=== PATIENT | male | born 1960 | race Caucasian/White ===

== ENCOUNTER 2016-12-31 20:04 | Inpatient (IN) | payer BC, OTHER ==
--- NOTE | 2016-12-31 21:20 | NUR ---
Intake Assessment Px will be admitted for alcohol dependence. Px is alert, oriented x4. Px is ambulatory with steady gait. Speech is clear. Px is anxious but cooperative. Px denies any PMHx. VS is as follows, BP= 161/99, TN= 131, T= 97.9, RR= 19, O2 sat= 94%. Explained unit protocol, and verbalized understanding.
--- NOTE | 2016-12-31 21:34 | NUR ---
Admission Note Admitted a 56 y/o male, at 2134H 12/31/2016 for withdrawal symptoms of alcohol. Body search done and skin checked, no contraband found, skin laceration on back of the head noted no active bleeding, picture taken. Px is standing at 5'10" weighs 208 lbs. Px is alert, oriented , and cooperative. Px follows a regular diet, has no known allergies and wishes to be in full code. Px appears to be anxious, with complaints of nausea. Abdomen is soft and not distended. Bowel sounds are active. Bilateral hand tremors and restlessness noted. VS is as follows, BP= 140/90, ME= 120, RR=18, T=98.7, O2sat= 95%. Denies any PmHx but took Sertralin for depression from his psychiatrist. Px reported suicide thoughts but not attempted. Px able to provide urine for drug test. Current CIWA is 16. Substance used: ETOH- Px has been drinking since he was 13 y/o. He was drinking 3-4 liters of wine a day for the past 2 weeks. Last intake was this morning 12/31/2016 Treatment Hx: [facility] for 6 days this December 2016 Px was brought to ER [facility] due to fall, wound lacerations noted on the back of the head, picture taken. Px reports longest sobriety was 4.5 months this 2016. Px reports symptoms of anxiety, restlessness, and sweats when he does not drink. Px denies use of any other drugs. Px refused to get pneumonia vaccine. Denies occurrence of seizures. Px put on fall risk, low bed, call light within reach. Seen and examined by Dr. Clark with orders and carried out. Alcohol level is at 0.11 Will continue to monitor the px.
--- NOTE | 2016-12-31 21:56 | NUR ---
ATIVAN 2mg x1 Patient presented with complaints of nausea with no episode of vomiting, fine tremors & restlessness. Patient was drenching in sweats & appears really anxious and with slight agitation noted. CIWA [address] this time[address] Dr. Clark saw patient with orders to given Ativan 2mg PO. Orders noted and carried out. Will reassess patient in 1 hour.
[2016-12-31] MEDS ORDERED: LORAZEPAM 1 MG TABLET PO ONE (22:00)
[2016-12-31] MEDS ORDERED: LORAZEPAM 1 MG TABLET ONE ×2 (22:07→23:59)
[2016-12-31] MEDS ORDERED: diphenhydrAMINE 50 MG CAPSULE PO PRN (22:15)
[2016-12-31] MEDS ORDERED: MIRALAX 17 GM POWD.PACK PO PRN (22:15)
[2016-12-31] MEDS ORDERED: ONDANSETRON 4 MG/2 ML VIAL IM PRN (22:15)
[2016-12-31] MEDS ORDERED: MAG HYDROX/AL HYDROX/SIMETH 30 ML LIQUID UDC PO PRN (22:15)
[2016-12-31] MEDS ORDERED: LOPERAMIDE HCL 2 MG CAPSULE PO PRN ×2 (22:15)
[2016-12-31] MEDS ORDERED: ACETAMINOPHEN 325 MG TABLET PO PRN (22:15)
[2016-12-31] MEDS ORDERED: IBUPROFEN 400 MG TABLET PO PRN (22:15)
[2016-12-31] MEDS ORDERED: ONDANSETRON ODT 4 MG TAB.RAPDIS SL PRN (22:15)
[2016-12-31] MEDS ORDERED: NEOMY/BACITRAC/POLYMI OINT 28.35 GM TUBE TOP SCH (22:15)
[2016-12-31] MEDS ORDERED: THIAMINE HCL 200 MG/2 ML VIAL IM ONE (22:15)
[2016-12-31] MEDS ORDERED: CLONIDINE HCL 0.1 MG TABLET PO PRN (22:15)
[2016-12-31] MEDS ORDERED: LORAZEPAM 2 MG/1 ML VIAL IM PRN (22:15)
[2016-12-31] MEDS ORDERED: LORAZEPAM 1 MG TABLET PO PRN ×2 (22:15)
[2016-12-31 22:22] LABS: *AMPHETAMINE, URINE NEGATIVE (NEGATIVE); *BARBITURATE, URINE POSITIVE (NEGATIVE); *CANNABINOID, URINE POSITIVE (NEGATIVE); *COCCAINE, URINE NEGATIVE (NEGATIVE); *OPIATE, URINE NEGATIVE (NEGATIVE); *PHENCYCLIDINE SCREEN,URINE NEGATIVE (NEGATIVE)
[2016-12-31] MEDS ORDERED: THIAMINE HCL 200 MG/2 ML VIAL ONE (22:30)
--- NOTE | 2016-12-31 22:44 | NUR ---
PRN Zofran Patient complains of nausea with no episode of vomiting. PRN Zofran administered as ordered. Will reassess in 1 hour. Will continue to monitor.
[2016-12-31] MEDS ORDERED: CLONIDINE HCL 0.1 MG TABLET PO ONE (22:45)
[2016-12-31] MEDS ORDERED: ONDANSETRON ODT 4 MG TAB.RAPDIS ONE (22:53)
[2016-12-31 23:16] LABS: BASOPHILS % (AUTO) 0.5 % (0.0-2.0); EOSINOPHILS % (AUTO) 0.2 % (0.0-7.0); HEMATOCRIT 43.4 % (40-50); HEMOGLOBIN 14.5 G/DL (14.0-18.0); LYMPHOCYTES # (AUTO) 0.5 K/UL (0.8-4.8); LYMPHOCYTES % (AUTO) 5.8 % (20.5-51.5); MEAN CORPUSCULAR HEMOGLOBIN 30.7 UUG (27.0-31.0); MEAN CORPUSCULAR HGB CONC 33 g/dL (32.0-37.0); MEAN CORPUSCULAR VOLUME 92.2 FL (82.0-92.0); MONOCYTES # (AUTO) 0.6 K/UL (0.1-1.30); MONOCYTES % (AUTO) 6.9 % (0.0-11.0); NEUTROPHILS # (AUTO) 8.3 K/UL (1.8-8.9); NEUTROPHILS % (AUTO) 86.6 % (38.5-71.5); PLATELET COUNT (AUTO) 214 K/UL (150-450); RED BLOOD CELL COUNT(AUTO) 4.71 MIL/UL (4.7-6.1); WHITE BLOOD COUNT (AUTO) 9.4 K/UL (4.0-11.2)
[2016-12-31 23:36] LABS: BILIRUBIN,TOTAL 0.6 mg/dL (0.2-1.0); CREATININE 0.9 mg/dL (0.6-1.3); MAGNESIUM 1.8 mg/dL (1.8-2.4); POTASSIUM 3.8 mmol/L (3.5-5.1); TOTAL PROTEIN, SERUM 7.7 g/dL (6.4-8.2)
--- NOTE | 2016-12-31 23:53 | NUR ---
PRN Administration Patient still complaining of anxiety, sweating & mild headache. Patient appears restless and anxious. Patient still noted with bilateral hand tremors. No hallucinations noted. CIWA 13 noted at this time. PRN Ativan 1mg, Motrin & a one time dose of Clonidine administered as ordered. Will monitor for effectiveness of medication.
[2016-12-31] MEDS ORDERED: IBUPROFEN 400 MG TABLET ONE (23:58)
[2016-12-31] MEDS ORDERED: CLONIDINE HCL 0.1 MG TABLET ONE (23:59)
[2017-01-01] VITALS: BP 153/97
[2017-01-01] MEDS ORDERED: diphenhydrAMINE 50 MG CAPSULE ONE (00:13)
[2017-01-01] MEDS ORDERED: TRAZODONE 50 MG TABLET PO ONE (01:00)
--- NOTE | 2017-01-01 01:08 | NUR ---
Patient complaining that he can't sleep. PRN Benadryl given at 0003 was not effective. Trazodone 50mg one time given as ordered. Will continue to monitor patient.
[2017-01-01] MEDS ORDERED: TRAZODONE 50 MG TABLET ONE (01:13)
--- NOTE | 2017-01-01 01:30 | NUR ---
MD Communication: Pt c/o angina, rating pain 5/10 and reports that pain does not radiate. HR 117, BP 118/80, SpO2 92-95% on RA. Dr Clark contacted and order received for stat ECG and Troponin. Also one-time orders for Ativan 2mg PO and metoprolol 50mg PO. ECG resulted at 01:37 abnormal; results relayed to Dr Clark 01:41 with order to given Aspirin 325mg PO x1 and transfer to ED for admission to 2nd floor for telemetry.
[2017-01-01] MEDS ORDERED: METOPROLOL TARTRATE 50 MG TABLET PO ONE (01:45)
[2017-01-01 01:51] VITALS: BP 118/80
[2017-01-01] MEDS ORDERED: METOPROLOL TARTRATE 50 MG TABLET ONE (01:56)
[2017-01-01] MEDS ORDERED: LORAZEPAM 1 MG TABLET ONE (01:57)
[2017-01-01] MEDS ORDERED: ASPIRIN 325 MG TABLET PO ONE (02:00)
[2017-01-01] MEDS ORDERED: LORAZEPAM 1 MG TABLET PO ONE (02:00)
[2017-01-01] MEDS ORDERED: ASPIRIN 325 MG TABLET ONE (02:02)
--- NOTE | 2017-01-01 02:05 | NUR ---
Transferred pt to ED via wheelchair with [facility], Charge Nurse and Primary Nurse. Report given to ER Nurse.
[2017-01-01] MEDS ORDERED: MULTIVITAMINS,THERAPEUTIC TABLET PO SCH (09:00)
[2017-01-01] MEDS ORDERED: TUBERCULIN,PURIF.PROT.DERIV. 5 TU/0.1 ML TEST ID ONE (09:00)
[2017-01-01] MEDS ORDERED: GABAPENTIN 300 MG CAPSULE PO SCH (09:00)
[2017-01-01] MEDS ORDERED: LORAZEPAM 1 MG TABLET PO SCH (09:00)
[2017-01-01] MEDS ORDERED: THIAMINE HCL 100 MG TABLET PO SCH (09:00)
[2017-01-01] MEDS ORDERED: FOLIC ACID 1 MG TABLET PO SCH (09:00)
[2017-01-02 06:08] LABS: HEPATITIS B SURFACE AG Negative (Negative)
[2017-01-02] MEDS ORDERED: LORAZEPAM 1 MG TABLET PO SCH (09:00)
[2017-01-04] MEDS ORDERED: LORAZEPAM 1 MG TABLET PO SCH (09:00)
[2017-01-05] MEDS ORDERED: LORAZEPAM 1 MG TABLET PO SCH (09:00)
== END 2017-01-01 02:05 | disposition short-term general hospital, planned readmission (82) | DRG 897 ==
LOC: SRC 20:58
PROVIDERS: ADMIT Internal Medicine; ATTEND Internal Medicine
PROC: HZ2ZZZZ Detoxification Services for Substance Abuse Treatment (ICD-10-PCS; principal; 2016-12-31)
DX: F10.232 Alcohol dependence with withdrawal with perceptual disturbance (principal); F32.9 Major depressive disorder, single episode, unspecified; W19.XXXD Unspecified fall, subsequent encounter; E78.5 Hyperlipidemia, unspecified; S01.01XD Laceration without foreign body of scalp, subsequent encounter; F41.9 Anxiety disorder, unspecified; R07.9 Chest pain, unspecified
CPT/HCPCS: 36415; 70030-TC; 80307; 80345; 80349; 83690; 83735; 85025; 86592; 86705; 86803; 87340; 87806; 93005; G0480; J3411; Q0162; Q0163

== ENCOUNTER 2017-01-01 02:01 | Inpatient (IN) | payer BC, OTHER ==
[~2017-01-01] VITALS: Ht 177.8 cm; Wt 99.8 kg
[2017-01-01] MEDS ORDERED: IV D5/ 0.9% NACL 1,000 ML IV ONE (02:12)
--- NOTE | 2017-01-01 02:14 | NUR ---
Pt brought to room from [facility] for complaints of chest pain. Pt NSR to ST on monitor. Pt denies chest pain at this time. Resp even and unlabored. Pt seen by Dr. English, awaiting further orders.
[2017-01-01] MEDS ORDERED: NITROGLYCERIN 0.4 MG/TAB BOTTLE SL ONE (02:15)
[2017-01-01] MEDS ORDERED: LORAZEPAM 2 MG/1 ML VIAL IV ONE (02:15)
[2017-01-01] MEDS ORDERED: NITROGLYCERIN OINT 1 GM PACKET TP ONE (02:15)
[2017-01-01] MEDS ORDERED: ASPIRIN 81 MG TAB.CHEW PO ONE (02:15)
[2017-01-01 02:42] LABS: BASOPHILS # (AUTO) 0.1 K/uL (0.0-8.0); BASOPHILS % (AUTO) 1.7 % (0.0-2.0); EOSINOPHILS % (AUTO) 0.2 % (0.0-7.0); HEMATOCRIT 40.6 % (40-50); HEMOGLOBIN 13.8 G/DL (14.0-18.0); LYMPHOCYTES # (AUTO) 0.8 K/UL (0.8-4.8); LYMPHOCYTES % (AUTO) 10.6 % (20.5-51.5); MEAN CORPUSCULAR HGB CONC 34 g/dL (32.0-37.0); MEAN CORPUSCULAR VOLUME 91.2 FL (82.0-92.0); MONOCYTES # (AUTO) 0.5 K/UL (0.1-1.30); MONOCYTES % (AUTO) 7.2 % (0.0-11.0); NEUTROPHILS # (AUTO) 6.1 K/UL (1.8-8.9); NEUTROPHILS % (AUTO) 80.3 % (38.5-71.5); PLATELET COUNT (AUTO) 196 K/UL (150-450); RED BLOOD CELL COUNT(AUTO) 4.46 MIL/UL (4.7-6.1); WHITE BLOOD COUNT (AUTO) 7.5 K/UL (4.0-11.2)
[2017-01-01 02:56] LABS: CREATININE 0.7 mg/dL (0.6-1.3)
[2017-01-01] MEDS ORDERED: LACTULOSE 20 G/30 ML LIQUID UDC PO ONE (03:15)
--- NOTE | 2017-01-01 03:20 | NUR ---
Rectal exam done by Dr. English with KALI Rae assisting. Upon rolling the pt for rectal exam, laceration to the back of head noted approx 2-3 cm. Unclear if pt went to ER s/p fall like he says.
[2017-01-01] MEDS ORDERED: CEFAZOLIN 1 G in IV DEXTROSE 5% 50 ML IV ONE (03:30)
[2017-01-01] MEDS ORDERED: TDAP DIPH,PERTUSS,TET VAC/PF 0.5 ML DISP.SYRIN IM ONE ×2 (03:45→04:19)
--- NOTE | 2017-01-01 03:46 | NUR ---
laceration to back of head cleansed with betadine and dry bulky drsg applied per Dr. English. Pt to CT via nita
--- NOTE | 2017-01-01 04:16 | NUR ---
Pt returned from CT via gurney. Pt no complaints at this time. ABT infusion started, will monitor for any adverse reactions.
[2017-01-01] MEDS ORDERED: CEFAZOLIN 1 G VIAL ONE (04:18)
[2017-01-01] MEDS ORDERED: LACTULOSE 20 G/30 ML LIQUID UDC ONE (04:19)
--- NOTE | 2017-01-01 05:55 | NUR ---
Pt to nuc. med via nita.
--- NOTE | 2017-01-01 07:00 | NUR ---
Pt returned from [facility]. med via gurney. Pt no complaints at this time. Pt NSR on monitor. Resp even and unlabored. Pt repositioned for comfort and given applesauce until his breakfast tray arrives.
--- NOTE | 2017-01-01 07:16 | NUR ---
Report given to KALI Carballo. I relinquish care of pt at this time. Pt awaiting results of VQ scan, re-evaluation and disposition.
--- NOTE | 2017-01-01 07:22 | NUR ---
1st contact with patient, Ox4, pending VQ scan results at this time. Patient is resting comfortably in bed with eyes closed. PATIENT IS PAIN FREE AT THIS TIME.
--- NOTE | 2017-01-01 08:06 | NUR ---
Telemetry nurse Tonia accepted nursing hands off report.
--- NOTE | 2017-01-01 08:23 | NUR ---
Patient is eating breakfast tray with good appetite, pending [facility] acceptance. Medically cleared by ER doctor Erich after talking to the [facility] hospitalist Dr Doyle Benton.
--- NOTE | 2017-01-01 08:38 | NUR ---
IV line may be used in [facility] or will be discontinued per Ethan- [facility] script worker.
--- NOTE | 2017-01-01 08:43 | NUR ---
Patient is for discharge back to [facility]. Ethan from [facility] came here (0839am) and picked up the patient. Patient discharged in stable conditon. Written and verbal after care instructions [facility] Patient verbalizes understanding of instructions and left ER with steady gait.
--- NOTE | 2017-01-01 09:11 | NUR ---
Received report from ER nurse Sadie, in regards to pt. 56 yo male transferred to ED around 0230 AM for c/o chest pain. Per reports CT of head, CXR, test to r/o PE, DVT all resulted negative. Troponin levels drawn x2, and negative. Pt has scalp laceration from fall prior to hospital admission. Pt ammonia level reports to be elevated at 50. Pt has saline lock #20 gauge. Per report, diagnosis from Dr. Jung is Delirium tremens and pt is stable to be transferred to our unit. Alert and Oriented x4 but slow to respond. Pt to be admitted to [facility] for detox at this time.
--- NOTE | 2017-01-01 09:15 | NUR ---
PRE ADMISSION Pre admission for 56 year old male, patient discharged from ER at [facility], to be admitted to [facility] detox. Patient was at ER at [facility] for c/o chest pain, patient was medically cleared. Patient to be admitted to [facility] detox. Patient noted alert and oriented x4, able to make needs known. Patient vital signs: 124/73 heart rate: 87, o2 sat: 94% room air, r: 16. Denies pain/discomfort. patient reports he's is here to detox off of alcohol. Patient was provided with education regarding unit policies with good verbal understanding. Patient denies any history of seizures. patient denies any past medical history, reports past psychiatric history of anxiety, diagnosed 4 years ago. patient denies taking any home medications. Patient reports allergies to shellfish.
--- NOTE | 2017-01-01 09:30 | NUR ---
ADMISSION Patient arrived to [facility] recovery unit at 0930, noted with steady gait. patient body search completed by male intake staff, no contraband found, patients body assessment completed, noted with laceration on top of head, approximately 3cmx [id number], appears to have scab over wound bed, fatmata wound pink in color. Per patient S/P fall incident on Wednesday. Denies any headaches or dizziness, pupils are equal and reactive to light, 3mm. Patients is 5 feet 10 inches and weighs 220 lbs. Picture was taken of laceration on head, and placed in chart. Patient was oriented to room and to unit, education regarding call light use was provided with good verbal understanding. Patient reports he is here to detox off of alcohol. As per patient for the past two weeks has been consuming 3-4 bottles of red wine daily. Per patient he last consumed a drink on 12/31/2016 in the morning, consumed 3 bottles of red wine. Patient reports he began drinking alcohol at the age of [age] years old, but has been consuming on/off on a daily basis in adulthood. Per patient he has been to multiple treatment centers, un able to recall the name of the, but reports this year he completed a 30 day program in May 2016 at [facility]. Reports this year he also attended [facility] twice. Patient reports two weeks ago he was at [facility], upon completion patient relapsed. Patient denies any history of seizures. Reports his primary care physician is Dr. Hogue in [place] at [facility]. Reports he was diagnosed with anxiety 4 years ago. Patient is poor historian, and noted slow to respond, patient is alert and oriented x4, noted disheveled and odorous. Patients respirations are even and unlabored, lungs are clear upon auscultation. Abdomen is soft and non distended, bowel sounds heard in all quadrants. Patient presented with mild nausea, fine tremors, barely sweating, moderate anxiety, and mild agitation with ciwa score of: 9. Dr. Clark aware of new admission. patients Safety measures are in place. call light kept with in reach, patient with admitting VTE score of: 2. DVT pumps placed in room. All needs met and rendered, will continue to monitor.
[2017-01-01] MEDS ORDERED: THIAMINE HCL 200 MG/2 ML VIAL IM ONE (10:00)
[2017-01-01] MEDS ORDERED: LORAZEPAM 2 MG/1 ML VIAL IM PRN (10:00)
[2017-01-01] MEDS ORDERED: LOPERAMIDE HCL 2 MG CAPSULE PO PRN ×2 (10:00)
[2017-01-01] MEDS ORDERED: ACETAMINOPHEN 325 MG TABLET PO PRN (10:00)
[2017-01-01] MEDS ORDERED: MAG HYDROX/AL HYDROX/SIMETH 30 ML LIQUID UDC PO PRN (10:00)
[2017-01-01] MEDS ORDERED: MIRALAX 17 GM POWD.PACK PO PRN (10:00)
[2017-01-01] MEDS ORDERED: ONDANSETRON 4 MG/2 ML VIAL IM PRN (10:00)
[2017-01-01] MEDS ORDERED: LORAZEPAM 1 MG TABLET PO PRN ×2 (10:00)
[2017-01-01 10:04] VITALS: BP 124/73
[2017-01-01] MEDS: LORAZEPAM 1 MG TABLET PO SCH ×4 (10:36→20:48)
--- NOTE | 2017-01-01 10:53 | NUR ---
SALINE LOCK D/C Saline lock was removed, no redness or infiltration noted, covered site with gauze and tape.
[2017-01-01 12:30] VITALS: BP 124/79
--- NOTE | 2017-01-01 13:56 | NUR ---
WOUND CARE CONSULT: PT PRESENTS WITH SCALP LACERATION WITH SCANT AMOUNT OF PINK DRAINAGE. CONCUR WITH CURRENT ORDER FOR TRIPLE AB OINTMENT. DISCUSSED WITH NURSING STAFF. WILL SEE PRN. TAY IN AGREEMENT WITH PLAN OF CARE. Addendum: 01/01/17 at 1357 by MICHELLE RODRIGUEZ RN Amended: Links added.
[2017-01-01 17:00] VITALS: BP 135/94
[2017-01-01] MEDS: NEOMY/BACITRAC/POLYMI OINT 28.35 GM TUBE TOP SCH (17:26)
--- NOTE | 2017-01-01 19:05 | NUR ---
END OF SHIFT Patient alert and oriented x4, vital signs stable during shift. Patient compliant with therapeutic plan of care. Patient with admitting Dx: ETOH dependence. Patient currently with ongoing 5 day Ativan taper, and is under close observation. 1300 assessment patient presented with: mild nausea, fine tremors, barely sweating, moderate anxiety, and mild agitation with ciwa score of: 9. 1700 assessment patient presented with: fine tremors, barely sweating, anxiety, and mild agitation with ciwa core of: 8. Detox medication effective at reducing withdrawal symptoms. Ativan taper, well tolerate,d no ASE noted. During shift patient was seen by Wound care nurse, with new treatment as ordered, area kept clean and dry at all times. Dry dressing intact. Patient denies any SI/HI. Encouraged to attend group therapies/sessions to learn new coping skills to prevent relapse, patient preferred to stay in room, despite much encouragement, per patient he is very tired and would like to rest. Encouraged adequate PO fluid intake as tolerated. Safety measures in place. Call light kept with in reach. All needs met and rendered. Patient endorsed to welder 2nd shift nurse, all pertinent information discussed.
[2017-01-01 20:00] VITALS: BP 139/83
--- NOTE | 2017-01-01 20:00 | NUR ---
Start of Shift Pt is a 56 year old male admitted for ETOH dependence, placed on 5 day Ativan taper. Pt reports consumption o f 3-4 bottles of red wine x2 weeks. PMH: Anxiety, allergies to shellfish, fall/seizure precautions (denies hx of seizures), regular diet and full code. At time of assessment, pt presents with anxiety, tremors visible, skin flushed, reports feeling mild chills throughout body, respirations even/unlabored, denies SOB/chest pain, denies n/v/d. VTE score 2, SCD pumps in use. Pt has Scalp laceration - triple AB ointment ordered. Medications due, Safety measures in place, call light within reach, side rails up x2, bed locked and in low position. Will continue to monitor.
[2017-01-01] MEDS: GABAPENTIN 300 MG CAPSULE PO SCH (20:48)
[2017-01-01] MEDS ORDERED: GABAPENTIN 300 MG CAPSULE PO SCH (21:00)
[2017-01-02] VITALS (7 sets, daily range): BP systolic 124–156; BP diastolic 83–103
--- NOTE | 2017-01-02 | NUR ---
Vital Signs BP 138/97, pulse 76, resp 16, SpO2 96% room air, temp 97.7, no reports of pain CIWA deferred d/t pt sleeping - to assess while pt is awake as ordered. Safety measures in place. Will continue to monitor.
--- NOTE | 2017-01-02 04:00 | NUR ---
Vital Signs BP 124/83, pulse 80, resp 16, SpO2 97% room air, temp 98.1, no reports of pain CIWA deferred d/t pt sleeping - to assess while pt is awake as ordered. Safety measures in place. Will continue to monitor.
--- NOTE | 2017-01-02 07:00 | NUR ---
End of Shift Pt is a 56 year old male admitted for ETOH dependence, placed on 5 day Ativan taper. Pt reports consumption o f 3-4 bottles of red wine x2 weeks. PMH: Anxiety, allergies to shellfish, fall/seizure precautions (denies hx of seizures), regular diet and full code. During shift, pt presented with anxiety, tremors visible, skin flushed, reports feeling mild chills throughout body - scheduled taper medications administered, CIWA 8. No PRN medications administered. VTE score 2, SCD pumps in use. Pt has Scalp laceration - triple AB ointment ordered. Pt slept for 9 hours, intake of 300 ml PO, voids x1 and stool x0. Safety measures in place, call light within reach, side rails up x2, bed locked and in low position. Will continue to monitor.
--- NOTE | 2017-01-02 07:30 | NUR ---
START OF SHIFT Pt 56 y/o male admitted for etoh dependence. Pt received awake on bed in room watching television. Pt alert and oriented to name, place, and time. Perrla. Skin warm and slightly moist to touch. Respirations even and unlabored. Bilateral hand tremors noted. It was reported that pt slept for 9 hours last night. Pt states feels anxious. Bed on lowest position with side rails x2 up for safety. Call light within reach. No distress noted at this time.
[2017-01-02 07:44] LABS: BASOPHILS % (AUTO) 0.8 % (0.0-2.0); EOSINOPHILS # (AUTO) 0.3 K/uL (0.0-0.7); EOSINOPHILS % (AUTO) 4.8 % (0.0-7.0); HEMATOCRIT 43.8 % (40-50); HEMOGLOBIN 14.3 G/DL (14.0-18.0); LYMPHOCYTES # (AUTO) 1.7 K/UL (0.8-4.8); LYMPHOCYTES % (AUTO) 29.4 % (20.5-51.5); MEAN CORPUSCULAR HEMOGLOBIN 30.4 UUG (27.0-31.0); MEAN CORPUSCULAR HGB CONC 33 g/dL (32.0-37.0); MEAN CORPUSCULAR VOLUME 93.1 FL (82.0-92.0); MONOCYTES # (AUTO) 0.4 K/UL (0.1-1.30); MONOCYTES % (AUTO) 6.7 % (0.0-11.0); NEUTROPHILS # (AUTO) 3.5 K/UL (1.8-8.9); NEUTROPHILS % (AUTO) 58.3 % (38.5-71.5); PLATELET COUNT (AUTO) 188 K/UL (150-450); RED BLOOD CELL COUNT(AUTO) 4.71 MIL/UL (4.7-6.1); WHITE BLOOD COUNT (AUTO) 5.9 K/UL (4.0-11.2)
[2017-01-02 08:00] LABS: BILIRUBIN,DIRECT 0.2 mg/dL (0.0-0.2); BILIRUBIN,TOTAL 0.9 mg/dL (0.2-1.0); CREATININE 0.9 mg/dL (0.6-1.3); MAGNESIUM 2.1 mg/dL (1.8-2.4); PHOSPHOROUS 4.7 mg/dL (2.5-4.9); POTASSIUM 3.7 mmol/L (3.5-5.1); TOTAL PROTEIN, SERUM 7.7 g/dL (6.4-8.2)
[2017-01-02] MEDS: THIAMINE HCL 100 MG TABLET PO SCH (08:13)
[2017-01-02] MEDS: IBUPROFEN 400 MG TABLET PO PRN ×2 (08:13→20:14)
[2017-01-02] MEDS: CLONIDINE HCL 0.1 MG TABLET PO PRN ×2 (08:13→18:13)
[2017-01-02] MEDS: FOLIC ACID 1 MG TABLET PO SCH (08:13)
[2017-01-02] MEDS: GABAPENTIN 300 MG CAPSULE PO SCH ×3 (08:13→21:11)
[2017-01-02] MEDS: MULTIVITAMINS,THERAPEUTIC TABLET PO SCH (08:13)
--- NOTE | 2017-01-02 08:13 | NUR ---
PRN Pt states feels anxious. Catapres po prn per MD order given and tolerated well.
--- NOTE | 2017-01-02 08:13 | NUR ---
ANGELAN MARU Pt states has general body pain 09/09. Motrin po prn per MD order given and tolerated well. Addendum: 01/02/17 at 1020 by ANGIE DUQUE RN PRN
[2017-01-02] MEDS: NEOMY/BACITRAC/POLYMI OINT 28.35 GM TUBE TOP SCH ×2 (08:14→16:49)
[2017-01-02] MEDS ORDERED: TUBERCULIN,PURIF.PROT.DERIV. 5 TU/0.1 ML TEST ID ONE (09:00)
[2017-01-02] MEDS ORDERED: LORAZEPAM 1 MG TABLET PO SCH ×3 (09:00→21:00)
--- NOTE | 2017-01-02 09:13 | NUR ---
CHARU MAHONEY Pt observed in room on bed watching television.
--- NOTE | 2017-01-02 09:13 | NUR ---
PRN MARU Pt states pain 06/12.
--- NOTE | 2017-01-02 12:24 | NUR ---
Therapist prompted client to attend daily group therapy sessions at 11am and 3:30pm. Client stated that he would like to attend both groups.
[2017-01-02] MEDS: ONDANSETRON ODT 4 MG TAB.RAPDIS SL PRN ×2 (14:06→20:19)
--- NOTE | 2017-01-02 14:07 | NUR ---
PRN Pt states feels nauseous. zofran odt prn per MD order given and tolerated well.
[2017-01-02] MEDS: SERTRALINE HCL 50 MG TABLET PO SCH (14:59)
--- NOTE | 2017-01-02 15:07 | NUR ---
PRN EVAL Pt states does not feel nauseous.
--- NOTE | 2017-01-02 18:18 | NUR ---
PRN Pt with GK=589/111. Catapres po prn per MD order given and tolerated well.
--- NOTE | 2017-01-02 18:28 | NUR ---
END OF SHIFT Pt 56 y/o male admitted for etoh dependence. Pt alert and oriented to name, place, and time. Perrla. Skin warm and slightly moist to touch. Respirations even and unlabored. Bilateral hand tremors noted. Pt observed mostly isolative to room throughout the day. Pt attended group activity. Pt was seen by MD today. Pt medication compliant and tolerated well. Bed on lowest position with side rails x2 up for safety. Call light within reach.
--- NOTE | 2017-01-02 20:00 | NUR ---
Start of Shift Pt is a 56 year old male admitted for ETOH dependence, placed on 5 day Ativan taper. Pt reports consumption o f 3-4 bottles of red wine x2 weeks. PMH: Anxiety, allergies to shellfish, fall/seizure precautions (denies hx of seizures), regular diet and full code. Upon assessment, pt presents with anxiety, headache, nausea, skin flushed, reports feeling body aches, respirations even/unlabored, denies SOB/chest pain. VTE score 2, SCD pumps in use. Medications due, Safety measures in place, call light within reach, side rails up x2, bed locked and in low position. Will continue to monitor.
--- NOTE | 2017-01-02 20:14 | NUR ---
PRN Administration Pt reports feeing nausea, no emesis episode. Reports headache, /. Zofran 4mg ODT PRN and Motrin 400mg PRN administered. Safety measures in place. Will continue to monitor.
[2017-01-02] MEDS ORDERED: AMLODIPINE 5 MG TABLET ONE (20:21)
[2017-01-02] MEDS ORDERED: LORAZEPAM 1 MG TABLET ONE (20:22)
[2017-01-02] MEDS ORDERED: AMLODIPINE 5 MG TABLET PO ONE (21:00)
--- NOTE | 2017-01-02 21:19 | NUR ---
PRN Reassessment Upon reassessment, pt reports relief of nausea. Headache subsiding, 06/12. Needs met, safety measures in place. Will continue to monitor.
[2017-01-03] VITALS (7 sets, daily range): BP systolic 98–162; BP diastolic 71–111
[2017-01-03] MEDS: hydrALAZINE HCL 50 MG TABLET PO PRN ×2 (00:12→17:21)
--- NOTE | 2017-01-03 00:12 | NUR ---
Vital Signs/PRN Administration BP 152/106, pulse 80, SpO2 97% room air, resp 18, temp 98.3, no reports of pain Hydralazine 50mg PRN administered. Safety measures in place, will continue to monitor BP.
[2017-01-03] MEDS ORDERED: hydrALAZINE HCL 50 MG TABLET ONE (00:23)
--- NOTE | 2017-01-03 04:00 | NUR ---
Vital Signs BP 136/92, pulse 82, resp 17, Spo2 97% room air, temp 97.9, no reports of pain. CIWA deferred due to pt sleeping, to assess while pt is awake as ordered. Safety measures in place. Will continue to monitor.
[2017-01-03] MEDS: CLONIDINE HCL 0.1 MG TABLET PO PRN (07:05)
--- NOTE | 2017-01-03 07:05 | NUR ---
PRN Clonidine 0.1mg PRN BP 162/104, pulse 80 Clonidine 0.1mg PRN administered. will endorse onto day shift nurse to monitor effectiveness.
--- NOTE | 2017-01-03 07:10 | NUR ---
End of Shift Pt is a 56 year old male admitted for ETOH dependence, placed on 5 day Ativan taper. Pt reports consumption o f 3-4 bottles of red wine x2 weeks. PMH: Anxiety, allergies to shellfish, fall/seizure precautions (denies hx of seizures), regular diet and full code. During shift, pt presented with anxiety, headache, nausea, skin flushed, reports feeling body aches scheduled taper medications administered, along with Motrin 400mg PRN and Zofran 4mg ODT PRN, effective as reported per pt, CIWA 5. Hydralazine 50mg PRN administered for elevated BP 152/106, effective BP 98/71. At 0705, PRN Clonidine 0.1mg PRN administered for elevated BP 162/104, relayed onto day shift nurse to monitor effectiveness. VTE score 2, SCD pumps in use. Pt slept for 8 hours, intake of 500 ml PO, voids x1 and stool x0. Safety measures in place, call light within reach, side rails up x2, bed locked and low position. Endorsed to day shift nurse.
--- NOTE | 2017-01-03 07:50 | NUR ---
START OF SHIFT NOTE Received report from night nurse, 56 year old male admitted for ETOH dependence, placed on 5 day Ativan taper. Pt reports consumption o f 3-4 bottles of red wine x2 weeks. Pt reported PMH of Anxiety. Pt was given PRN Motrin, Zofran, Hydralazine, Clonidine by night nurse for high blood pressure. Last CIWA-5, slept for 8 hours. Upon assessment, pt presents with anxiety, agitation. Breathing normal no SOB noted, Respirations even unlabored, VTE score 2, SCD pumps in use. Educated pt with plan of care and medication regimen with good verbal understanding. Safety measures in place, Call light within reach. Will cont to monitor.
--- NOTE | 2017-01-03 08:05 | NUR ---
CLONIDINE REASSESSMENT Pt received PRN Clonidine by night nurse, Upon reassessment B/P noted 133/72, HR-78. Medication noted effective.
[2017-01-03] MEDS: MULTIVITAMINS,THERAPEUTIC TABLET PO SCH (08:25)
[2017-01-03] MEDS: FOLIC ACID 1 MG TABLET PO SCH (08:25)
[2017-01-03] MEDS: THIAMINE HCL 100 MG TABLET PO SCH (08:25)
[2017-01-03] MEDS: LORAZEPAM 1 MG TABLET PO SCH ×3 (08:25→21:31)
[2017-01-03] MEDS: SERTRALINE HCL 50 MG TABLET PO SCH (08:25)
[2017-01-03] MEDS: GABAPENTIN 300 MG CAPSULE PO SCH (08:25)
[2017-01-03] MEDS: NEOMY/BACITRAC/POLYMI OINT 28.35 GM TUBE TOP SCH ×2 (08:52→16:43)
[2017-01-03] MEDS ORDERED: LORAZEPAM 1 MG TABLET PO SCH (09:00)
[2017-01-03] MEDS ORDERED: AMLODIPINE 5 MG TABLET PO SCH (09:00)
[2017-01-03] MEDS ORDERED: LORAZEPAM 1 MG TABLET PO ONE (12:00)
--- NOTE | 2017-01-03 12:09 | NUR ---
ATIVAN 1mg Po x 1 given CIWA-9, one time Ativan 1 mg Po given at this time. Will monitor for effectiveness.
--- NOTE | 2017-01-03 13:09 | NUR ---
ATIVAN REASSESSMENT Per patient, PRN Ativan was effective in reducing patient's withdrawal symptoms. CIWA score noted 6.
[2017-01-03] MEDS: GABAPENTIN 400 MG CAPSULE PO SCH ×2 (14:12→21:31)
[2017-01-03] MEDS: ONDANSETRON ODT 4 MG TAB.RAPDIS SL PRN (14:12)
--- NOTE | 2017-01-03 14:12 | NUR ---
PRN ZOFRAN Pt complaining of nausea no episode of vomiting reported, PRN Zofran 4mg SL given as ordered. Will cont to monitor for effectiveness.
--- NOTE | 2017-01-03 14:32 | NUR ---
ZOFRAN REASSESSMENT Per pt medication effective in reducing nausea.
--- NOTE | 2017-01-03 17:21 | NUR ---
PRN HYDRALAZINE Pt noted with elevated B/P 162/111, Hr-108. PRN hydralazine 50mg administered as ordered. Will cont to monitor for effectiveness.
--- NOTE | 2017-01-03 18:21 | NUR ---
HYDRALAZINE REASSESSMENT upon reassessment pt's blood pressure noted 137/80 medication effective.
--- NOTE | 2017-01-03 19:06 | NUR ---
END OF SHIFT NOTE Pt presented with nausea, elevated B/P 162/111. Pt was given PRN Hydralazine Po /Zofran 4mg SL effective per pt in reducing nausea and B/P decreased to 137/80. Pt attended groups and activities. Vital signs remained stable. Skin intact warm and dry to touch. Pt remained complaint with plan of care. Encourage PO fluids as tolerated. All safety measures in place, Call light within reach. Pt endorsed to night nurse in stable condition.
--- NOTE | 2017-01-03 19:30 | NUR ---
Start of shift: Received patient in the hallway, alert and oriented x4. Calm and cooperative with care. Patient is 56 years old male admitted for ETOH dependence and placed on 5 day Ativan taper. PMH of anxiety. patient denies SI/HI/AVH. speech is clear and able to make his needs known. Will continue to monitor behavior and medication effectiveness while MD titrate medication.
[2017-01-03] MEDS ORDERED: AMLODIPINE 5 MG TABLET PO ONE (21:00)
[2017-01-03] MEDS: IBUPROFEN 400 MG TABLET PO PRN (21:42)
[2017-01-04] VITALS: BP 133/94
--- NOTE | 2017-01-04 01:02 | NUR ---
Patient asleep. Respiration even and unlabored. Administered Benadryl 50mg for sleep. Unable to assess CIWA at this time. Addendum: 01/04/17 at 0104 by CLAUDIO WATT RN Amended: Links added.
--- NOTE | 2017-01-04 04:17 | NUR ---
Patient asleep. Respiration even and unlabored. Refused CIWA and vital signs assessment at this time. Addendum: 01/04/17 at 0418 by CLAUDIO WATT RN Amended: Links added.
--- NOTE | 2017-01-04 06:08 | NUR ---
End of Shift notes: Patient slept 7 hours and 15 minutes. Respiration even and unlabored. No signs of distress. Behavior; calm and cooperative with care. Intake 855ml and voided times two. Administered Benadryl 50mg PRN for sleep. No behavior issues. Will continue to monitor behavior. Addendum: 01/04/17 at 0713 by CLAUDIO WATT RN Note: Patient was given Motrin last night NOT Benadryl 50mg as stated above. Benadryl returned in the pyxis and placed in the container above the pyxis.
--- NOTE | 2017-01-04 07:45 | NUR ---
START OF SHIFT NOTE Received report from night nurse, 56 year old male admitted for ETOH dependence, pt cont on 5 day Ativan taper. Pt reports consumption o f 3-4 bottles of red wine x2 weeks. Pt reported PMH of Anxiety. Pt was given PRN Benadryl by night nurse, Last CIWA-2, slept for 7 hours. Upon assessment, pt alert awake Oriented x4, Breathing normal no SOB noted, Respirations even unlabored, VTE score 2, SCD pumps in use. Educated pt with plan of care and medication regimen with good verbal understanding. Safety measures in place, Call light within reach. Will cont to monitor.
[2017-01-04 08:00] VITALS: BP 150/98
[2017-01-04] MEDS: THIAMINE HCL 100 MG TABLET PO SCH (08:21)
[2017-01-04] MEDS: SERTRALINE HCL 50 MG TABLET PO SCH (08:21)
[2017-01-04] MEDS: GABAPENTIN 400 MG CAPSULE PO SCH (08:21)
[2017-01-04] MEDS: MULTIVITAMINS,THERAPEUTIC TABLET PO SCH (08:21)
[2017-01-04] MEDS: FOLIC ACID 1 MG TABLET PO SCH (08:21)
[2017-01-04] MEDS: AMLODIPINE 10 MG TABLET PO SCH (08:22)
[2017-01-04] MEDS: NEOMY/BACITRAC/POLYMI OINT 28.35 GM TUBE TOP SCH ×2 (08:23→16:07)
[2017-01-04] MEDS ORDERED: LORAZEPAM 1 MG TABLET PO SCH ×2 (09:00)
[2017-01-04] MEDS: hydrALAZINE HCL 50 MG TABLET PO PRN (10:31)
[2017-01-04] MEDS: ONDANSETRON ODT 4 MG TAB.RAPDIS SL PRN (10:31)
--- NOTE | 2017-01-04 10:31 | NUR ---
PRN ZOFRAN/HYDRALAZINE Pt complaining of nausea. Vital signs checked and noted with elevated blood pressure 167/102, HR-120. PRN Hydralazine 50mg Po, Zofran 4mg SL as ordered. Will cont to monitor and reassess for effectiveness.
--- NOTE | 2017-01-04 11:01 | NUR ---
ZOFRAN REASSESSMENT Per pt nausea improved medication effective.
--- NOTE | 2017-01-04 11:31 | NUR ---
HYDRALAZINE REASSESSMENT B/P noted 148/97 medication effective.
[2017-01-04 12:00] VITALS: BP 155/99
[2017-01-04] MEDS: CLONIDINE HCL 0.1 MG TABLET PO PRN (12:16)
--- NOTE | 2017-01-04 12:16 | NUR ---
PRN CLONIDINE Pt complaining of anxiety and agitation. PRN Clonidine administered as ordered. Will cont to monitor and reassess for effectiveness.
--- NOTE | 2017-01-04 13:16 | NUR ---
CLONIDINE REASSESSMENT Per pt medication effective feeling less anxious and agitated.
[2017-01-04] MEDS: LORAZEPAM 1 MG TABLET PO SCH ×2 (14:03→21:20)
[2017-01-04] MEDS: GABAPENTIN 300 MG CAPSULE PO SCH ×2 (14:03→21:20)
[2017-01-04] MEDS: CLONIDINE HCL 0.1 MG TABLET PO SCH ×2 (15:19→21:20)
[2017-01-04 16:00] VITALS: BP 132/86
[2017-01-04] MEDS: IBUPROFEN 400 MG TABLET PO PRN (17:25)
--- NOTE | 2017-01-04 17:25 | NUR ---
PRN MOTRIN Pt complaining of headache 08/10. PRN Motrin 400mg administered, as ordered. Will cont to monitor and reassess for effectiveness.
--- NOTE | 2017-01-04 18:25 | NUR ---
MOTRIN REASSESSMENT Per pt medication effective headache subside to 05/12.
--- NOTE | 2017-01-04 18:58 | NUR ---
END OF SHIFT NOTE pt presented with anxiety, elevated blood pressure, headache. Pt was given PRN Clonidine/Hydralazine/Motrin noted effective. Pt was sen by Dr. Clark with new orderers. Medication administered as ordered. Pt attended some groups and activities. Vital signs WNL. Skin intact warm and dry to touch. Pt remained complaint with plan of care. Encourage PO fluids as tolerated. All safety measures in place, Call light within reach. Pt endorsed to night nurse in stable condition.
--- NOTE | 2017-01-04 19:30 | NUR ---
START OR SHIFT Pt is a 56 year old male admitted for ETOH dependency,Pt continues on 5 day Ativan taper and is tolerating well.No A/R noted. Pt reported PMH of Anxiety. Last CIWA-2. Pt received in stable condition, alert,awake and Oriented x4, Respirations even unlabored, VTE score 2, SCD pumps in use.No c /o pain or s/s acute distress noted.Pt is cooperative with plan of care and medication regimen.All Safety measures in place, Call light within reach. Will cont to monitor.
[2017-01-04 20:00] VITALS: BP 128/78
[2017-01-04] MEDS: diphenhydrAMINE 50 MG CAPSULE PO PRN (21:20)
--- NOTE | 2017-01-04 21:21 | NUR ---
PER MED--- PRN BENADRYL GIVEN FOR C/O INSOMNIA PER PT REQUEST.WILL MONITOR FOR EFFECTIVENESS.
--- NOTE | 2017-01-04 22:22 | NUR ---
PRN F/U PRN BENADRYL IS EFFECTIVE. PT IS RESTING IN BED WITH EYES CLOSED,NO S/S OF DISTRESS NOTED,WILL BE MONITORED FOR SAFETY.
[2017-01-05] VITALS: BP 108/76
[2017-01-05 04:00] VITALS: BP 131/85
--- NOTE | 2017-01-05 07:12 | NUR ---
END OF SHIFT Pt is a 56 year old male admitted for ETOH dependency,Pt continues on 5 day Ativan taper and is tolerating well.No A/R noted. Pt reported PMH of Anxiety. Last CIWA-2. Pt is in stable condition. Respirations even unlabored, VTE score 2, SCD pumps in use.No c /o pain or s/s acute distress noted.Pt is cooperative with plan of care and medication regimen.PRN Benadryl was given last night for c/o insomnia with good effect.Pt slept 8 hrs,fluid intake was 500 mls,voided x 1;no c/o pain or distress noted.All Safety measures in place, Call light within reach. Will cont to monitor.
--- NOTE | 2017-01-05 07:59 | NUR ---
START OF SHIFT NOTE Received report from night nurse, 56 year old male admitted for ETOH dependence, pt cont on 5 day Ativan taper. Pt reports consumption o f 3-4 bottles of red wine x2 weeks. Pt reported PMH of Anxiety. Pt was given PRN Benadryl by night nurse, Last CIWA-2, slept for 8 hours. Upon assessment, pt alert awake Oriented x4, Breathing normal no SOB noted, Respirations even unlabored, VTE score 2, SCD pumps in use. Educated pt with plan of care and medication regimen with good verbal understanding. Safety measures in place, Call light within reach. Will cont to monitor.
[2017-01-05 08:00] VITALS: BP 142/88
[2017-01-05] MEDS: SERTRALINE HCL 50 MG TABLET PO SCH (08:08)
[2017-01-05] MEDS: GABAPENTIN 300 MG CAPSULE PO SCH ×3 (08:08→21:58)
[2017-01-05] MEDS: THIAMINE HCL 100 MG TABLET PO SCH (08:08)
[2017-01-05] MEDS: MULTIVITAMINS,THERAPEUTIC TABLET PO SCH (08:08)
[2017-01-05] MEDS: FOLIC ACID 1 MG TABLET PO SCH (08:08)
[2017-01-05] MEDS: AMLODIPINE 10 MG TABLET PO SCH (08:09)
[2017-01-05] MEDS: CLONIDINE HCL 0.1 MG TABLET PO SCH ×3 (08:09→21:57)
[2017-01-05] MEDS: NEOMY/BACITRAC/POLYMI OINT 28.35 GM TUBE TOP SCH ×2 (08:09→16:38)
[2017-01-05] MEDS ORDERED: LORAZEPAM 1 MG TABLET PO SCH ×2 (09:00)
[2017-01-05 12:00] VITALS: BP 130/92
[2017-01-05 16:00] VITALS: BP 114/88
--- NOTE | 2017-01-05 19:08 | NUR ---
END OF SHIFT NOTE Pt completed his Ativan taper tolerated well. Pt attended some groups and activities. Vital signs WNL. Pt did not receive any PRN medication during shift. Skin intact warm and dry to touch. Pt scheduled for discharge in AM Skin picture taken and placed in the chart. Last CIWA-2. Pt remained complaint with plan of care. Encourage PO fluids as tolerated. All safety measures in place, Call light within reach. Pt endorsed to night nurse in stable condition.
--- NOTE | 2017-01-05 19:30 | NUR ---
START OR SHIFT Pt is a 56 year old male admitted for ETOH dependency,Pt has completed his 5 day Ativan taper and is being discharged tomorrow.Pt received resting in bed,pleasant on approach ,is somewhat anxious. Last CIWA-2. He is in stable condition, alert,awake and Oriented x4, Respirations even unlabored, VTE score 2, SCD pumps in use.No c /o pain or s/s acute distress noted.Pt is cooperative with plan of care and medication regimen.All Safety measures in place, Call light within reach. Will cont to monitor.
[2017-01-05 20:00] VITALS: BP 115/81
[2017-01-05] MEDS ORDERED: SERT50TA12 PO (20:01)
[2017-01-05] MEDS ORDERED: HYDR-3895 PO (20:01)
[2017-01-05] MEDS ORDERED: AMLO10TA2 PO (20:01)
[2017-01-05] MEDS ORDERED: CLON0.1T14 PO (20:01)
[2017-01-05] MEDS ORDERED: GABA-534 PO (20:01)
[2017-01-05] MEDS ORDERED: DIPH50CA37 PO (20:01)
[2017-01-05] MEDS: ONDANSETRON ODT 4 MG TAB.RAPDIS SL PRN (20:55)
--- NOTE | 2017-01-05 20:56 | NUR ---
PRN ZOFRAN ODT GIVEN ORDERED FOR C/O NAUSEA.NO C/O VOMITING NOTED.WILL CONTINUE TO MONITOR FOR EFFECTIVENESS.
--- NOTE | 2017-01-05 21:55 | NUR ---
PRN ZOFRAN IS EFFECTIVE IN RELIEVING NAUSEA.
[2017-01-05] MEDS: diphenhydrAMINE 50 MG CAPSULE PO PRN (21:56)
[2017-01-05] MEDS: HYDROXYZINE PAMOATE 25 MG CAPSULE PO PRN (21:56)
--- NOTE | 2017-01-05 22:02 | NUR ---
PRN MEDS PRN VISTARIL AND BENADRYL GIVEN ORDERED FOR C/O ANXIETY AND INSOMNIA RESPECTIVELY.WILL CONTINUE TO MONITOR.
--- NOTE | 2017-01-05 23:02 | NUR ---
PRN MEDS ARE HELPFUL.PT IS RESTING IN BED WITH EYES CLOSED.NO S/S OF DISTRESS NOTED.WILL CONTINUE TO MONITOR.
[2017-01-06] VITALS: BP 110/73
[2017-01-06 04:00] VITALS: BP 112/75
[2017-01-06] MEDS: HYDROXYZINE PAMOATE 25 MG CAPSULE PO PRN ×2 (05:17→11:52)
--- NOTE | 2017-01-06 05:18 | NUR ---
PRN VISTARIL GIVEN ORDERED FOR C/O ANXIETY PER PT REQUEST.WILL MONITOR.
--- NOTE | 2017-01-06 06:18 | NUR ---
PRN F/U PT VERBALIZED THAT VISTARIL IS HELPFUL IN REDUCING ANXIETY.HE IS RESTING IN BED WITH EYES CLOSED.
--- NOTE | 2017-01-06 06:52 | NUR ---
END OF SHIFT Pt is a 56 year old male admitted for ETOH dependency,Pt has completed his 5 day Ativan taper and is being discharged today. Last CIWA-3. Pt is alert,awake and Oriented x4, Respirations even unlabored;No c /o pain or s/s acute distress noted.PRN meds Zofran,Vistaril x 2 and Benadryl were given last night and were effective.Pt c/o feeling anxious about going home.Pt is cooperative with plan of care and medication regimen.Pt slept 5 hrs,consumed 2350 mls of fluids,voided x 5.All Safety measures in place, Call light within reach. Will continue to monitor.
--- NOTE | 2017-01-06 07:38 | NUR ---
START OF SHIFT NOTE Received report from night nurse, 56 year old male admitted for ETOH dependence, pt cont on 5 day Ativan taper. Pt reports consumption o f 3-4 bottles of red wine x2 weeks. Pt reported PMH of Anxiety. Pt was given PRN Zofran, Benadryl Vistarilx2 by night nurse, Last CIWA-3, slept for 5 hours. Upon assessment, pt alert awake Oriented x4, Breathing normal no SOB noted, Respirations even unlabored, VTE score 2, SCD pumps in use. Educated pt with plan of care and medication regimen with good verbal understanding. Safety measures in place, Call light within reach. Will cont to monitor.
[2017-01-06 08:00] VITALS: BP 137/81
[2017-01-06] MEDS: MULTIVITAMINS,THERAPEUTIC TABLET PO SCH (08:21)
[2017-01-06] MEDS: AMLODIPINE 10 MG TABLET PO SCH (08:21)
[2017-01-06] MEDS: SERTRALINE HCL 50 MG TABLET PO SCH (08:21)
[2017-01-06] MEDS: THIAMINE HCL 100 MG TABLET PO SCH (08:21)
[2017-01-06] MEDS: FOLIC ACID 1 MG TABLET PO SCH (08:21)
[2017-01-06] MEDS: GABAPENTIN 300 MG CAPSULE PO SCH (08:21)
[2017-01-06] MEDS: CLONIDINE HCL 0.1 MG TABLET PO SCH (08:22)
[2017-01-06] MEDS: NEOMY/BACITRAC/POLYMI OINT 28.35 GM TUBE TOP SCH (08:22)
[2017-01-06] MEDS: ONDANSETRON ODT 4 MG TAB.RAPDIS SL PRN (09:22)
--- NOTE | 2017-01-06 09:22 | NUR ---
PRN Zofran given for complaint of nausea. No emesis reported by patient. Non pharmacological intervention not effective. Administered prn Zofran 4 mg SL. Will reassess for effectiveness.
--- NOTE | 2017-01-06 10:12 | NUR ---
Karla reassessment. Patient states no nausea at this time, medication effective for relief of symptoms.
[2017-01-06 12:00] VITALS: BP 135/84
--- NOTE | 2017-01-06 12:00 | NUR ---
DISCHARGE NOTE Pt is in stable condition. Vital signs WNL. Pt is alert and oriented x4. Skin intact, Pt denies any SI/HI ideations. All discharge paper work completed dated and signed. Pt educated about discharge instructions, with good verbal understanding. Last CIWA 2. Pt presented with anxiety, PRN Vistaril 25 mg Po administered as ordered. Pt left the building on 01/06/17 at 1200.Pt left the building with all of his belonging and prescriptions. Pt discharged to home and picked up by his . has been contracted and notified of pt's discharge.
== END 2017-01-06 12:00 | disposition home or self-care (01) | DRG 895 ==
LOC: ER 02:05 → SRC 08:46
PROVIDERS: ADMIT Internal Medicine; ATTEND Internal Medicine
PROC: HZ41ZZZ Group Counseling for Substance Abuse Treatment, Behavioral (ICD-10-PCS; principal; 2017-01-01)
PROC: HZ2ZZZZ Detoxification Services for Substance Abuse Treatment (ICD-10-PCS; principal; 2017-01-01)
PROC: HZ31ZZZ Individual Counseling for Substance Abuse Treatment, Behavioral (ICD-10-PCS; 2017-01-02)
DX: F10.232 Alcohol dependence with withdrawal with perceptual disturbance (principal); E87.3 Alkalosis; E72.20 Disorder of urea cycle metabolism, unspecified; I15.9 Secondary hypertension, unspecified; W19.XXXD Unspecified fall, subsequent encounter; K70.10 Alcoholic hepatitis without ascites; F32.9 Major depressive disorder, single episode, unspecified; Y90.9 Presence of alcohol in blood, level not specified; S01.01XD Laceration without foreign body of scalp, subsequent encounter; Y92.015 Private garage of single-family (private) house as the place of occurrence of the external cause; E78.5 Hyperlipidemia, unspecified; F41.9 Anxiety disorder, unspecified; D50.9 Iron deficiency anemia, unspecified; E86.0 Dehydration; R73.9 Hyperglycemia, unspecified; R07.9 Chest pain, unspecified
CPT/HCPCS: 36415; 70030-TC; 70450; 71010; 78579; 82746; 83550; 83735; 84100; 85025; 85730; 86580; 90715; 93005; A4663; A9540; A9567; J0690; J3411; J7042; J7060; Q0162; Q0163

== ENCOUNTER 2017-01-27 09:12 | Inpatient (IN) | payer BC, OTHER ==
[~2017-01-27] VITALS: Ht 177.8 cm; Wt 93.0 kg
--- NOTE | 2017-01-27 12:35 | NUR ---
Pre-Assessment Green Energy Marketing Analyst encounters pt in intake room. Pt is A/O x4 and able to make needs known. Calm and cooperative, slow to respond, Flat affect and congruent mood. Pt here to detox from ETOH. VS stable. Pt with clear thought process and speech pattern. Pt will benefit from admission and is medically stable.
--- NOTE | 2017-01-27 12:50 | NUR ---
Admission Note VS on admit: 136/93 - 103 - 16 - 98.7 - 96% - 0/10 5' 10" - 205 lbs Pt admitted for ETOH detoxification, per ambulation escorted by Ethan from intake. Pt remains A/O x4, calm and cooperative. Slow to respond with flat affect and congruent mood. Pt is clear in thought content and speech process. No thoughts of suicide or homicide. Denies any hallucinations. Pt has a history of depression, anxiety, HTN, dyslipidemia and anemia. Pt states he only takes Zoloft (50mg), but failed to bring with. Pt was discharged [facility] on 01/06/17 and has struggled to remain sober since. Pt had been drinking bottle of wine a day, but recently began drinking Vodka. Pt has been drinking 750ml ( 1/5th) daily for a week. Pt has been to 4 detoxs this year and was a treatment facility in May of this year. Pt has a strong support system. with children, lives at home with family. 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 Pt has no hx of alf or IV drug use. Initial [facility] 8 Pt has completed admit process and signed all necessary paperwork. Pt's belongings have been secured and accoutned for. No medications were brought to hospital. Will continue to monitor, support and encourage according to plan of care.
[2017-01-27 13:26] LABS: *AMPHETAMINE, URINE NEGATIVE (NEGATIVE); *BARBITURATE, URINE NEGATIVE (NEGATIVE); *CANNABINOID, URINE NEGATIVE (NEGATIVE); *COCCAINE, URINE NEGATIVE (NEGATIVE); *OPIATE, URINE NEGATIVE (NEGATIVE); *PHENCYCLIDINE SCREEN,URINE NEGATIVE (NEGATIVE)
--- NOTE | 2017-01-27 14:02 | NUR ---
PCP Pt reports a PCP of Dr. Montes in [place]. Denies any consistent psychiatrist, although currently taking Zoloft
[2017-01-27] MEDS ORDERED: SERT50TA PO (14:04)
[2017-01-27 14:54] VITALS: BP 136/93
--- NOTE | 2017-01-27 15:04 | NUR ---
PRN Zofran Pt complain of serious nausea with no emesis at this time. Data Migration Lead administered medication as prescribed, pt toelrated well. Will continue to monitor, suppoer and encourage according to plan of care.
[2017-01-27 15:37] LABS: BASOPHILS # (AUTO) 0.1 K/uL (0.0-8.0); BASOPHILS % (AUTO) 1.1 % (0.0-2.0); EOSINOPHILS % (AUTO) 0.7 % (0.0-7.0); HEMOGLOBIN 16.5 G/DL (14.0-18.0); LYMPHOCYTES # (AUTO) 1.5 K/UL (0.8-4.8); LYMPHOCYTES % (AUTO) 23.8 % (20.5-51.5); MEAN CORPUSCULAR HEMOGLOBIN 31.9 UUG (27.0-31.0); MEAN CORPUSCULAR HGB CONC 34 g/dL (32.0-37.0); MEAN CORPUSCULAR VOLUME 93.1 FL (82.0-92.0); MONOCYTES # (AUTO) 0.9 K/UL (0.1-1.30); MONOCYTES % (AUTO) 14.8 % (0.0-11.0); NEUTROPHILS # (AUTO) 3.6 K/UL (1.8-8.9); NEUTROPHILS % (AUTO) 59.6 % (38.5-71.5); PLATELET COUNT (AUTO) 185 K/UL (150-450); RED BLOOD CELL COUNT(AUTO) 5.16 MIL/UL (4.7-6.1); WHITE BLOOD COUNT (AUTO) 6.1 K/UL (4.0-11.2)
--- NOTE | 2017-01-27 16:00 | NUR ---
OT Ativan ordered OT dose of Ativan d/t pt's reported symptoms. CIWA 11, as recorded. Application Analyst administered medication as ordered with pt tolerating well. Will continue to monitor, support and encourage.
--- NOTE | 2017-01-27 16:04 | NUR ---
PRN Re-assessment Pt denies any relief. " I am hoping the Ativan is going to help as well." Will continue to monitor, support and encourage according to plan of care.
[2017-01-27 16:13] LABS: BILIRUBIN,TOTAL 0.5 mg/dL (0.2-1.0); MAGNESIUM 1.8 mg/dL (1.8-2.4); POTASSIUM 4.1 mmol/L (3.5-5.1)
[2017-01-27 16:30] VITALS: BP 137/91
--- NOTE | 2017-01-27 17:01 | NUR ---
OT Ativan Re-assessment Pt has decreased anxiety and his nausea is improved. Reports relief from symptoms. Will continue to monitor, support and encourage according to plan of care
--- NOTE | 2017-01-27 18:59 | NUR ---
End of Shift Frontend Engineer provided report on 34 year old male admitted on 01/24/17 for Benzodiazepine and Opioid detoxification. Pt endorses NKA, full code and regular diet. Pt reports a PMH of HIV, depression, anxiety, ADHD and insomnia. Pt currently on modified Subutex and Ativan taper, tolerating well, with minimal complaints made. Last COWS 3 and CIWA 2 at 1630. Pt did not receive any PRN medication this shift. Pt has been A/O x4 and calm and cooperative. Pt makes needs known and is appropriate in interactions. Pt clear in though and speech. Pt has a normal affect with congruent mood. Bed in low position with wheels locked and side rails up x2, call light within reach. Will continue to monitor, support and encourage according to plan of care. Addendum: 01/27/17 at 1903 by ABBEY PERSAUD RN STRIKE ENTIRE ENTRY - WRONG PATIENT
--- NOTE | 2017-01-27 19:04 | NUR ---
End of Shift Cut Off Sawyer Log provided report on 56 year old male admitted today for ETOH detoxification. Pt reports NKA and is a full code and eats a regular diet. Reports PMH of HTN, anxiety, depression, hyper-lipidemia, and anemia. Pt has not been placed on any taper, but did receive a onetime dose of Ativan, tolerated well and pt expressed some relief with administration of medication. Pt initial CIWA of 8, with the last CIWA of 9 recorded at 1630. No PRN medication administered this shift. Pt is A/O x4, makes needs known. Slow to process at times and needs re-enforcement on simple tasks. Pt has complaints of nausea and moderate withdrawal symptoms. . Bed in low position with wheels locked and side rails up x2, call light within reach. Will continue to monitor, support and encourage according to plan of care.
--- NOTE | 2017-01-27 19:30 | NUR ---
START OF SHIFT Pt is a 56 y/o male admitted today for ETOH dependence. Pt's last use was this morning. Pt was previously admitted to [facility] on 01/01/17, but pt reports relapsing 2 weeks after discharge. Pt reports that he was binge drinking 750 ml of vodka daily for the past four days prior to admission. Pt is full code, diet: no pork or shellfish, NKA, and on fall/seizure precautions. Pt denies hx of seizures. Pt reports PMH of HTN, dyslipidemia, anemia, anxiety, depression. Upon assessment, pt laying in bed and presents with skin flushing, lightheadedness, anxiety, nausea, stomach cramps, mild tremors. Respirations 18, even and unlabored. Denies V/D. Denies chest pain or SOB. Medications due. Safety measures in place. Call light within reach. Will continue to monitor.
--- NOTE | 2017-01-27 19:54 | NUR ---
PRN BENTYL AND ZOFRAN ADMINISTRATION Pt reports stomach cramps and nausea. Safety measures in place. Call light within reach. Will continue to monitor.
[2017-01-27 20:00] VITALS: BP 123/88
--- NOTE | 2017-01-27 20:24 | NUR ---
PRN EVE REASSESSMENT Pt reports nausea has ceased. Safety measures in place. Call light within reach. Will continue to monitor.
--- NOTE | 2017-01-27 20:54 | NUR ---
PRN EVERTON REASSESSMENT Pt reports stomach cramps improved. Safety measures in place. Call light within reach. Will continue to monitor.
--- NOTE | 2017-01-27 21:24 | NUR ---
PRN BENADRYL ADMINISTRATION Pt requests sleep aid. 50 mg Benadryl administered. Safety measures in place. Call light within reach. Will continue to monitor.
--- NOTE | 2017-01-27 21:25 | NUR ---
ONE TIME ATIVAN 2 MG ADMINISTRATION CIWA 9. Will reassess in one hour. Safety measures in place. Call light within reach.
--- NOTE | 2017-01-27 22:24 | NUR ---
PRN BENADRYL REASSESSMENT Pt is laying in bed with eyes closed. Safety measures in place. Call light within reach. Will continue to monitor.
--- NOTE | 2017-01-27 22:25 | NUR ---
ONE TIME ATIVAN REASSESSMENT CIWA went from 8 to 4, pt is laying in bed with eyes closed, but not fully asleep. Safety measures in place. Call light within reach. Will continue to monitor.
[2017-01-28] VITALS (8 sets, daily range): BP systolic 110–161; BP diastolic 63–110
--- NOTE | 2017-01-28 | NUR ---
CIWA DEFERRED Pt is laying in bed with eyes closed, CIWA deferred and to be assessed when pt is fully awake per orders. Respirations 18, even and unlabored. Safety measures in place. Call light within reach. Will continue to monitor.
--- NOTE | 2017-01-28 04:00 | NUR ---
CIWA DEFERRED Pt is laying in bed with eyes closed, CIWA to be assessed while fully awake per orders. Respirations 16, even and unlabored. Safety measures in place. Call light within reach. Will continue to monitor.
[2017-01-28 06:06] LABS: HEPATITIS B SURFACE AG Negative (Negative)
--- NOTE | 2017-01-28 07:22 | NUR ---
END OF SHIFT Pt is a 56 y/o male admitted today for ETOH dependence. Pt's last use was this morning. Pt was previously admitted to [facility] on 01/01/17, but pt reports relapsing 2 weeks after discharge. Pt reports that he was binge drinking 750 ml of vodka daily for the past four days prior to admission. Pt is full code, diet: no pork or shellfish, NKA, and on fall/seizure precautions. Pt denies hx of seizures. Pt reports PMH of HTN, dyslipidemia, anemia, anxiety, depression. Pt presetnted with skin flushing, lightheadedness, anxiety, nausea, stomach cramps, mild tremors. Scheduled medications and PRN Benadryl, Bentyl, and Zofran administered, effective in S/S of withdrawal AEB CIWA went from 8 to 4 during shift. Slept 8 hours, intake 1047 ml, void x 2, stool x 0. Respirations 16, even and unlabored. Denies N/V/D. Denies SI/HI. Denies chest pain or SOB. Safety measures in place. Call light within reach. Endorsed to day shift nurse.
--- NOTE | 2017-01-28 07:40 | NUR ---
START OF SHIFT Received report from night nurse. 56 year old male patient admitted on 01/27/17 for ETOH withdrawals. Pt was recently discharged from [facility] on 01/06 and relapsed for 2 weeks. Reports hx of HTN, anxiety, depression, dyslipidemia, anemia. Full code, NKA, regular diet (no pork or shellfish). Pt most recent CIWA was 4. V/S remain stable and WNL. PRN Benadryl, Bentyl, Zofran administered. Pt slept for 8 hours. Pt does not yet have a taper, remains compliant with MD orders. All needs met at this time, safety measures in place, will continue to monitor.
--- NOTE | 2017-01-28 08:44 | NUR ---
PRN ATIVAN/CLONIDINE PRN Ativan administered for CIWA 5, pt presents with anxiety, agitation, mild nausea, increased b/p of 157/97. Pt encouraged to use relaxation methods. PRN Ativan 1mg and Clonidine 0.1mg administered and will be reassessed.
--- NOTE | 2017-01-28 09:44 | NUR ---
REASSESSMENT B/P is 139/90, and CIWA is 4. Ativan and Clonidine were effective.
[2017-01-28] MEDS ORDERED: GABA-534 PO (11:23)
[2017-01-28] MEDS ORDERED: TRAZ-144 PO (11:23)
[2017-01-28] MEDS ORDERED: HYDR-3026 PO (11:23)
[2017-01-28] MEDS ORDERED: AMLO10TA2 PO (11:23)
[2017-01-28] MEDS ORDERED: ACAM333T8 PO (11:23)
--- NOTE | 2017-01-28 12:45 | NUR ---
PRN APRESOLINE Pt b/p is 161/110, heart rate 85, PRN Apresoline administered as ordered, will reassess.
--- NOTE | 2017-01-28 12:47 | NUR ---
PRN ATIVAN Pt CIWA is 7, PRN Ativan 1 mg administered as ordered. Pt has tremors, anxiety and increased agitation. Pt encouraged to take deep breaths and verbalize feelings, will reassess.
--- NOTE | 2017-01-28 13:44 | NUR ---
REASSESSMENT B/P is now 138/87, heart rate 88. Medication was effective.
--- NOTE | 2017-01-28 13:47 | NUR ---
REASSESSMENT Pt CIWA is 3. PRN Ativan was effective.
--- NOTE | 2017-01-28 18:57 | NUR ---
END OF SHIFT Endorsed to night nurse. 56 year old male admitted on 01/27/17 for ETOH withdrawals. Pt remains A/O x4. Pt is not on a taper, PRN medications available. PRN Ativan 1mg administered x2, PRN Clonidine and Apresoline given for high b/p and effective. Most recent CIWA is 3. P remains compliant with MD orders, verbalizes feelings, reassurance provided. Pt attends group. Education provided on smoking cessation. All needs met at this time. Pt remains safe throughout shift, denies pain. Night nurse will continue to monitor.
--- NOTE | 2017-01-28 19:15 | NUR ---
START OF SHIFT Received 56 year old male patient admitted on 01/27/17 for ETOH dependency. Pt is full code with NKA. He repots a PMHx of HTN, anxiety, depression, dyslipidemia, and anemia. Pt reports using ETOH 750mL (hard liquor) daily for 40 years. Last dose was a couple shots on 01/27/17. Pt denies history of seizures. He is currently not receiving a taper but has PRN medications available. Per endorsement, pt refused PPD, and received PRN Ativan x2, Apresoline, and Clonidine. Pt is alert and oriented x4, breathing is even and unlabored. Safety measures in place. Will monitor.
--- NOTE | 2017-01-28 21:58 | NUR ---
PRN TRAZODONE Pt reports that Benadryl has been ineffective. PRN Trazodone administered as ordered for sleep. Safety measures in place. Will monitor effectiveness.
--- NOTE | 2017-01-28 22:58 | NUR ---
PRN TRAZODONE REASSESSMENT PRN medication is effective. Pt lying in bed with eyes closed noted to be asleep. No facial grimacing. Respirations 16, breathing is even and unlabored. Safety measures in place. Will monitor.
[2017-01-29] VITALS (7 sets, daily range): BP systolic 118–167; BP diastolic 74–107
--- NOTE | 2017-01-29 | NUR ---
CIWA DEFERRED 0000 CIWA deferred d/t pt lying in bed with eyes closed noted to be asleep. Breathing is even and unlabored, safety measures in place. Will monitor.
--- NOTE | 2017-01-29 04:00 | NUR ---
CIWA DEFERRED 0400 CIWA deferred. Pt lying in bed with eyes closed noted to be asleep. Respiration 16, breathing is even and unlabored. Safety measures in place. Will monitor.
--- NOTE | 2017-01-29 07:09 | NUR ---
END OF SHIFT Pt is a 56 year old male patient admitted on 01/27/17 for ETOH dependency. Pt is full code with NKA. He repots a PMHx of HTN, anxiety, depression, dyslipidemia, and anemia. He continues on PRN medications only. At 2158 he received PRN Trazodone. He slept a total of 7 hrs, Intake: 855mL, Void:x3, BM:0, CIWA:3. Pt remains alert and oriented x4, breathing is even and unlabored. Safety measures in place. Endorsed to oncoming shift.
--- NOTE | 2017-01-29 07:36 | NUR ---
START OF SHIFT Received report from night nurse. 56 year old male patient admitted on 01/27/17 for ETOH withdrawals. Pt is only on PRNs, not taper initiated. PRN Trazodone was administered and effective, pt slept for 7 hours. V/S were WNL throughout night. Most recent CIWA is 3. Pt did not complain of acute s/s of withdrawals. All needs met, will continue to monitor.
--- NOTE | 2017-01-29 08:29 | NUR ---
PRN ATIVAN PRN Ativan 1mg administered as ordered. Pt CIWA is 8, pt presents with anxiety, agitation, flushes face, mild sweats, and tremors. Calming reassurance provided, will reassess.
[2017-01-29 09:12] LABS: CREATININE 0.7 mg/dL (0.6-1.3); POTASSIUM 3.7 mmol/L (3.5-5.1)
--- NOTE | 2017-01-29 09:32 | NUR ---
REASSESSMENT Pt CIWA is now a 5, prn Ativan 1mg was effective. Pt encouraged to take deep breaths and attend groups and activities.
--- NOTE | 2017-01-29 17:34 | NUR ---
PRN APRESOLINE PRN Apresoline 50mg administered for b/p 156/102, heart rate 93. Will reassess.
--- NOTE | 2017-01-29 18:47 | NUR ---
MD COMMUNICATION Pt b/p is 167/107, heart rate 93 after Hydralazine 50mg, notified MD. Dr. Clark ordered Labetalol 100mg once, night nurse to reassess effectiveness.
--- NOTE | 2017-01-29 19:03 | NUR ---
END OF SHIFT Endorsed to night nurse. 56 year old male admitted for ETOH withdrawals. Pt is medically cleared for discharge tomorrow. Pt presents with anxiety related to discharge, pt was able to verbalize feelings. Calming reassurance provided. Pt presents with HTN. PRN Apresoline administered and ineffective, one time order for Labetolol 100mg, night nurse to reassess. PRN Ativan 1mg administered and effective, most recent CIWA is 4. All needs met at this time. Pt has adequate caloric and fluid intake. Reports bm x1. Pt attends group activities. Safety measures in place, night nurse will continue to monitor.
--- NOTE | 2017-01-29 19:15 | NUR ---
START OF SHIFT Received 56 year old male patient admitted on 01/27/17 for ETOH dependency. Pt is full code with NKA. He reports a PMHx of HTN, anxiety, depression, dyslipidemia, and anemia. Pt reports using ETOH 750mL (hard liquor) daily for 40 years. Last dose was a couple shots on 01/27/17. Pt denies history of seizures. He is currently not receiving a taper but has PRN medications available. Per endorsement, pt is scheduled to be DC tomorrow 01/30/17 to [facility]. Pt received PRN Ativan and one time order of Labetalol d/t increased BP. Pt is alert and oriented x4, breathing is even and unlabored. Safety measures in place. Will continue to monitor.
--- NOTE | 2017-01-29 19:47 | NUR ---
REASSESSMENT 160/100, HR: 96. Pt denies headache/dizziness. Pt complains of increased anxiety and appears worried. Pt verbalized feelings of anxiety related to discharge. Will monitor.
[2017-01-29] MEDS ORDERED: CLON0.1T14 PO (19:53)
[2017-01-29] MEDS ORDERED: GABA-534 PO ×2 (19:53)
--- NOTE | 2017-01-29 22:16 | NUR ---
PRN TRAZODONE/VISTARIL Pt complains of inability to sleep and states that Benadryl is not effective. Pt also complains of anxiety. PRN Trazodone and Vistaril administered as ordered. Breathing even and unlabored. Safety measures in place. Will monitor effectiveness.
--- NOTE | 2017-01-29 23:16 | NUR ---
PRN TRAZODONE/VISTARIL REASSESSMENT PRN medications effective. Pt is lying in bed with eyes closed noted to be asleep. No facial grimacing. Respirations 16, breathing even and unlabored. Safety measures in place. Will monitor.
[2017-01-30] VITALS: BP 116/74
--- NOTE | 2017-01-30 | NUR ---
CIWA DEFERRED CIWA deferred d/t pt lying in bed with eyes closed noted to be asleep. Respirations 16, breathing is even and unlabored. Safety measures in place. Will monitor.
[2017-01-30 04:00] VITALS: BP 132/85
--- NOTE | 2017-01-30 07:15 | NUR ---
END OF SHIFT Pt is a 56 year old male patient admitted on 01/27/17 for ETOH dependency. Pt is full code with NKA. He repots a PMHx of HTN, anxiety, depression, dyslipidemia, and anemia. He is scheduled to be DC today 01/30/17 to [facility]. At 2216 he received PRN Vistaril and Trazodone. He slept a total of 7 hrs, Intake:500mL, Void: x2, BM:0, CIWA:4. Pt remains alert and oriented x4, breathing is even and unlabored. Safety measures in place. Endorsed to oncoming shift.
--- NOTE | 2017-01-30 07:20 | NUR ---
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 Pt reports NKA and is a full code and eats a regular diet. Reports PMH of HTN, anxiety, depression, hyper-lipidemia, and anemia. 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 Pt CIWA of 4, per slot shift manager nurse. Pt is A/O x4, makes needs known. 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 Pt is A/O x4 and able to make his needs known. Pt calm and cooperative. Anxious about discharge today. Slow to process at times. Bed in low position with wheels locked and side rails up x2, call light within reach. Will continue to monitor, support and encourage according to plan of care.
[2017-01-30 08:06] VITALS: BP 150/103
[2017-01-30 08:23] VITALS: BP 150/103
--- NOTE | 2017-01-30 09:32 | NUR ---
Discharge Note Pt discharged per ambulation. Pt in stable condition, with VS WNL. Pt is A/O x4. Calm, cooperative and appropriate with staff and peers. Endorses some anxiety r/t discharge. Denies A/VH, HI/SI or any associated psychiatric symptoms. Pt with clear thought process and speech content. Pt educated on discharge education including medication. Indication, timing, route and notification of medication prescriptions being e-faxed to pharmacy associated with treatment facility. Pt with no home medications. Personal belongings returned and signed for, All education education signed and pt denies any further comments, questions or concerns. Pt is discharged to awaiting private transport for transportation to "[facility] notified of pt's departure.
== END 2017-01-30 09:32 | disposition other institution (70) | DRG 895 ==
LOC: SRC 12:17
PROVIDERS: ADMIT Internal Medicine; ATTEND Internal Medicine
PROC: HZ2ZZZZ Detoxification Services for Substance Abuse Treatment (ICD-10-PCS; principal; 2017-01-27)
PROC: HZ41ZZZ Group Counseling for Substance Abuse Treatment, Behavioral (ICD-10-PCS; 2017-01-28)
DX: F10.230 Alcohol dependence with withdrawal, uncomplicated (principal); E87.2 Acidosis; I15.9 Secondary hypertension, unspecified; F10.220 Alcohol dependence with intoxication, uncomplicated; D50.9 Iron deficiency anemia, unspecified; F32.9 Major depressive disorder, single episode, unspecified; E78.5 Hyperlipidemia, unspecified; F41.9 Anxiety disorder, unspecified; Y90.9 Presence of alcohol in blood, level not specified; Z81.1 Family history of alcohol abuse and dependence; R73.9 Hyperglycemia, unspecified
CPT/HCPCS: 36415; 70030-TC; 80307; 83735; 85025; 86592; 86705; 86803; 87340; 87806; G0480; J3411; Q0162; Q0163